=== PATIENT | female | born 1940 | race Caucasian/White ===

== ENCOUNTER 2021-10-01 10:23 | Outpatient (CLI) | payer OTHER, MEDICARE, BC, SELFPAY ==
--- OUTSIDE RECORDS SUMMARY | 2021-10-08 21:30 | XMS_ITS | Encounter Summary ---
:1940 Author Organization [facility] Address [address] [place] [address] Care Team Providers Name Role Phone Unavailable Primary Care Provider Unavailable Encounter Details Date Type Department Care Team Description 03/03/2021 Admin Visit Department of Family Medicine, [address] [address] [facility] [phone] Social History Tobacco Use Types Packs/Day Years Used Date Smoking Tobacco: Never Assessed Sex Assigned at Date Recorded Not on file documented as of this encounter Plan of Treatment Not on filedocumented as of this encounter Visit Diagnoses Not on filedocumented in this encounter Additional Health Concerns Infection Onset Date Last Indicated Resolved Time COVID19 Pending 03/01/2021 03/03/2021 03/04/2021 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
--- OUTSIDE RECORDS SUMMARY | 2021-10-08 21:30 | XMS_ITS | Encounter Summary ---
:1940 Author Organization [facility] Address [address] [place] [address] Care Team Providers Name Role Phone Unavailable Primary Care Provider Unavailable Encounter Details Date Type Department Care Team Description 06/22/2021 Admin Visit Department of Family Medicine, [address] [address] [facility] [phone] Social History Tobacco Use Types Packs/Day Years Used Date Smoking Tobacco: Never Assessed Sex Assigned at Date Recorded Not on file documented as of this encounter Plan of Treatment Not on filedocumented as of this encounter Visit Diagnoses Not on filedocumented in this encounter Additional Health Concerns Infection Onset Date Last Indicated Resolved Time COVID19 Pending 06/22/2021 06/22/2021 06/23/2021 8:47 AM CDT documented as of this encounter
--- OUTSIDE RECORDS SUMMARY | 2021-10-08 21:30 | XMS_ITS | Encounter Summary ---
:1940 Author Organization [facility] Address [address] [place] [address] Care Team Providers Name Role Phone Unavailable Primary Care Provider Unavailable Encounter Details Date Type Department Care Team Description 01/21/2006 Historical Ophthalmology RST OPH Kamron Miranda M.D. [address] [place], [place] [phone] (Wo rk) Social History Tobacco Use Types Packs/Day Years Used Date Smoking Tobacco: Never Assessed Sex Assigned at Date Recorded Not on file documented as of this encounter Progress Notes Kamron Bautista M.D. - 01/21/2006 12:00 AM CST Eye General CHIEF COMPLAINT retina problems in both eyes HISTORY OF PRESENT ILLNESS This 65 year old female was referred here by Dr. Butler ([place], [place]) for an evaluation of bilateral macular changes. Letter is along with history. Patient states that she was going to have cataract surgery performed, but was told that she needed to take care of her retinas before doing so. Patient states that vision has changed quite dramatically in the last 9 months in both eyes. Started to notice changes in her vision since October of 2003. Isn't having problems with her near vision, more so in the distance. Sees floaters in both eyes on occasion, x 9 months. Bright lights at night bother her, she sees stars. Denies any flashes of light. Denies pressure and pain. Denies double vision. IMPRESSION / REPORT / PLAN #1 Basal laminar (cuticular) drusen, both eyes Malattia Leventinese type? #2 Moderate cataracts, both eyes I think they are visually significant in both eyes, mervat in valerie left eye as there are many vacuoles, and valerie red reflex is significantly blocked in both eyes #3 Atypical choroidal nevi, left eye X2, should be monitored periodically, preferably every 6 months #[address] Butler is planning on working this up, this is already scheduled Get fundus photos, OCT to rule out srf, mervat in left eye OCT does not show any sub or intraretinal fluid. I think she would benefit from cataract surgery, and management of the possible present keratoconus.Cuticular drusen have a lower risk of complications than typical AMD. 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
--- OUTSIDE RECORDS SUMMARY | 2021-10-08 21:30 | XMS_ITS | Encounter Summary ---
:1940 Author Organization [facility] Address [address] [place] [address] Care Team Providers Name Role Phone Unavailable Primary Care Provider Unavailable Reason for Visit Outpatient (Routine) - Closed Specialty Diagnoses / Procedures Referred By Contact Refer red To Contact Nephrology and Diagnoses Chronic Kidney Disease Stage 5 Glomerular Filtration Rate Less Than 15 (HCC) Dylan Nassar M.D. [facility] Hypertension / Dialysis [address] [place] [address] Referral ID Status Reason Start Date Expiration Date Visits Requ ested Visits Authorized [id number] Closed 02/03/2020 02/02/2021 1 1 Encounter Details Date Type Department Care Team Description 02/27/2020 Comprehensive Visit Division of Vascular Marco Nassar M.D. [address] [place] [phone] Chronic Kidney and Endovascular Kendall Bal M.D. [address] [place] [phone] Disease Stage 5 Surgery in Glomerular [place], [place] Filtration Rate [address] [facility] Less Than 15 (HCC) [place] [phone] Social History Tobacco Use Types Packs/Day Years Used Date Smoking Tobacco: Never Assessed Sex Assigned at Date Recorded Not on file documented as of this encounter Consult Notes Kendall Bal M.D. - 02/27/2020 1:20 PM CST Hui Rodriguez : 1940 Visit Date: 02/27/20 Referring provider: Dylan Nassar M.D. SUBJECTIVE CHIEF COMPLAINT/ REASON FOR VISIT: End Stage Renal Disease HISTORY OF PRESENT ILLNESS: Hui Rodriguez is a 79 y.o. female that presents for consultation. She has been referred for consideration of creation of permanent dialysis access. She is currently not on dialysis. In fact, herGFR has been quite stable, 17 and 15 over the last 12 months. She does not have uremic symptoms. Sheis right handed. Current dialysis: no Prior history of dialysis fistula:No VAS Surgery VQI Screening No current outpatient medications on file. REVIEW OF SYSTEMS: Pertinent items are noted in HPI; all other systems were reviewed per Medical History. OBJECTIVE PHYSICAL EXAM: General: Alert and oriented, no acute distress. Examination of the neck, chest, and upper extremities reveal no anatomical abnormalities. Extremities: Oscar's test is negative bilaterally. Radial and ulnar pulses are palpable bilaterally. No evidence of significant collateral circulation in either arm. Pulses Exam DIAGNOSTIC STUDIES Ultrasound Results: Left brachial arteries patent, greater than 3 mm, bifurcates distally. Cephalic vein is 2 mm at the antecubital fossa, 2.2 mm at the lower humerus. Basilic vein is 2.4/2.5 mm at thelevel of the antecubital fossa. On the right, her bifurcation is very high, at the level of the axilla. Cephalic and basilic vein were of good caliber for fistula. ASSESSMENT / PLAN Would recommend a left brachial basilic fistula in 2 stages. However, I am not entirely sure that she is ready for a fistula yet, as her renal function has been very stable she does not have any uremicsymptoms. I discussed her case with Dr. Nassar and he will talk to her local electric melt operator, and we willdecide about timing of the procedure. While her left basilic vein is borderline for fistula, I do believe it is worth trying particularly with the 2 stage approach. Discussed impression report and plan with the patient, indication for the procedure, prognosis with and without procedure. Discussed the risks and benefits of an arteriovenous fistula, including steal,nerve injury, hemorrhagic complications, infection, wound healing problems, anesthesia related problems, nerve damage, need for multiple fistulogram is a interventions in the future, possible no maturation of the vein, and the patient understands and agrees with the plan, all questions answered. DIAGNOSIS: #1 Chronic Kidney Disease Stage 5 Glomerular Filtration Rate Less Than 15 (HCC) Kendall Bal M.D. S SALESPERSON documented in this encounter Plan of Treatment Not on filedocumented as of this encounter Visit Diagnoses Diagnosis Chronic Kidney Disease Stage 5 Glomerula r Filtration Rate Less Than 15 (HCC) documented in this encounter
--- OUTSIDE RECORDS SUMMARY | 2021-10-08 21:30 | XMS_ITS | Encounter Summary ---
:1940 Author Organization [facility] Address [address] [place] [address] Care Team Providers Name Role Phone Unavailable Primary Care Provider Unavailable Encounter Details Date Type Department Care Team Description 01/02/2020 [facility] Levi Navas Chronic Kidney [facility] Rose Mary Stern Disease Stage [address] [place] [address] [place], [place] Dependent (HCC) [phone] [id number] (Primary Dx) Social History Tobacco Use Types Packs/Day Years Used Date Smoking Tobacco: Never Assessed Sex Assigned at Date Recorded Not on file documented as of this encounter Plan of Treatment Not on filedocumented as of this encounter Visit Diagnoses Diagnosis Chronic Kidney Disease Stage 4 GFR 15-29 Dialysis Dependent (HCC) - Primary documented in this encounter
--- OUTSIDE RECORDS SUMMARY | 2021-10-08 21:30 | XMS_ITS | Encounter Summary ---
:1940 Author Organization [facility] Address [address] [place] [address] Care Team Providers Name Role Phone Unavailable Primary Care Provider Unavailable Reason for Visit Reason Onset Date Comments Testing For Upper Respiratory Virus Symptoms 01/19/2021 Encounter Details Date Type Department Care Team Description 01/19/2021 External Outreach Department of [facility] Manpreet Cardona Contact With And Medicine, [facility] Bill Marsh (Suspected) Exposure Building, in [address] To COVID-19 (Primary [place], [place] Dx) [address] [facility] [address] [place], [place] [phone] [address] (Work) [phone] Social History Tobacco Use Types Packs/Day Years Used Date Smoking Tobacco: Never Assessed Sex Assigned at Date Recorded Not on file documented as of this encounter Progress Notes Marion Jaramillo R.N. - 01/19/2021 12:44 PM CST Encounter created for symptomatic infectious disease screening with possible COVID, Influenza, RSV, and/or Group A Strep testing. 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 documented in this encounter Results SARS Coronavirus-2 RNA, V Symptomatic (01/19/2021 2:49 PM BIOLOGY MANAGER) [facility] Method Time Signature SARS-CoV-2 Swab, 01/20/2021 MKTO Specimen Nasopharynx 9:26 AM BIOLOGY MANAGER Source SARS CoV-2 Undetected Undetected 01/20/2021 MKTO RNA, TMA 9:26 AM BIOLOGY MANAGER Comment: SARS-CoV-2 RNA absent. This result does not rule out COVID-19 in the patient, as the sensitivity of the test depends o n the timing of the specimen collection and the quality of the specim en. Result should be correlated with patient's history and clinical presentat ion. ----ADDITIONAL INFORMATION---- This molecular amplification test was pe rformed using the Aptima SARS-CoV-2 assay ([employer] on the Project Playlists tem under emergency use authorization (EUA) by the U.S. Food and Drug Administ ration. Fact sheets for this EUA assay can be fo und at the following links: For Healthcare Providers: https://www.Zoobe a.gov/media/121704/download For Patients: https://www.fda.gov/media/ 458470/download Specimen Anatomical Collection Method Collection Time Receive d Time (Source) Location / / Volume Laterality Varies 01/19/2021 2:49 PM 1:58 (Nasopharynx) BIOLOGY MANAGER AM BIOLOGY MANAGER Manpreet Cardona D.O. LAB MICROBIOLOGY - GENERAL O RDERABLES Performing Organization Address City/State/ZIP Code Phon e Number [facility]- [address] [place] [phone] [place] [address] [address] documented in this encounter Visit Diagnoses Diagnosis Contact With And (Suspected) Exposure To COVID-19 - Primary documented in this encounter Additional Health Concerns Infection Onset Date Last Indicated Resolved Time COVID19 Pending 01/19/2021 01/19/2021 01/20/2021 9:27 AM BIOLOGY MANAGER documented as of this encounter
--- OUTSIDE RECORDS SUMMARY | 2021-10-08 21:30 | XMS_ITS | Encounter Summary ---
:1940 Author Organization [facility] Address [address] [place] [address] Care Team Providers Name Role Phone Unavailable Primary Care Provider Unavailable Encounter Details Date Type Department Care Team Description 02/14/2020 Documentation Division of Nephrology and Matteo Allen, Hypertension in [facility] [address] [facility] [address] [place] [phone] Social History Tobacco Use Types Packs/Day Years Used Date Smoking Tobacco: Never Assessed Sex Assigned at Date Recorded Not on file documented as of this encounter Nursing Notes Maisha Allen RJanuary - 02/14/2020 2:[address] Nassar CHIEF COMPLAINT/PURPOSE OF VISIT REASON FOR REFERRAL: ??Needs education and evaluation for permanent vascular access for dialysis HISTORY OF PRESENT ILLNESS ? PERTINENT PROCEDURAL HISTORY: ? 79 y.o., female, from [facility], referred by Dr. Nassar for education and evaluation for permanent vascular access for dialysis. ??Her kidney disease is related to diabetic nephropathy and hypertension. ??Her eGFR is 14 mL/min. (She is not yet on dialysis). ?? Other history: ??She has a history of kidney stones, diabetes type 2, hypertension, hypothyroidism. ??She is not interested in home dialysis including PD. PACEMAKER: ??None noted in chart. DIABETES: ?Diabetic Type 2: ??Per chart medications include Glipizide, Aspart, and Tresiba ANTICOAGULATION: ? Takes 81mg Aspirin only. LABORATORY RESULTS: ?Please see EPIC for current Labs. ELECTROCARDIOGRAM: ?None in chart. CHEST X-RAY: ? None in chart VEIN MAPPING: ?? Scheduled prior to surgeon consult PHONE ASSESSMENT Patient is right handed. ??She has no hand complaints besides intermittent numbness bilaterally. ??She does not recall ever having a PICC line. ??She is a diabetic and checks blood sugars on both hands. I instructed her once the fistula side is known to not check blood sugars on that side anymore. IMPRESSION/REPORT/PLAN ?I reviewed the following booklets with the patient and her spouse over the phone today (90minutes): ??Hemodialysis Catheters ([id number]), Hemodialysis Fistula and Graft ([id number]) and the Hemodialysis Vascular Access sheet from [employer] ([id number]). ??All questions were answered. Surgeon: Patient will be seen by Dr. Bal Plan: ??Consult on Thursday, 02/26 Surgery: TBD Insulin Directions: Will need to ensure that she takes all 3. Follow Diabetes Medication Guidelines per each one. Anticoagulation medications directions: ??ASA only ARI: ??Will need to be obtained prior to surgery. ??Dr. Nassar to place orders for MANJINDER vs complete inclinic. 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
--- OUTSIDE RECORDS SUMMARY | 2021-10-08 21:30 | XMS_ITS | Encounter Summary ---
:1940 Author Organization [facility] Address [address] [place] [address] Care Team Providers Name Role Phone Unavailable Primary Care Provider Unavailable Reason for Visit Outpatient (Routine) - Closed Specialty Diagnoses / Procedures Referred By Contact Refer red To Contact Nephrology and Dylan Nassar M.D. [facility] Hypertension [address] [place] [address] Referral ID Status Reason Start Date Expiration Date Visits Requ ested Visits Authorized [id number] Closed 02/03/2020 02/02/2021 1 1 Encounter Details Date Type Department Care Team Description 02/14/2020 Virtual Visit Division of Nephrology Delvis Nassar M.D. [address] [place] [phone] Chronic Kidney and Hypertension in Maisha Allen R.N. [address] [place] [phone] Disease Stage 5 [place], [place] Glomerular [address] [facility] Filtration Rate Less [place], [place] Than 15 ([facility]) [phone] Social History Tobacco Use Types Packs/Day Years Used Date Smoking Tobacco: Never Assessed Sex Assigned at Date Recorded Not on file documented as of this encounter Progress Notes Maisha Allen R.N. 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
--- OUTSIDE RECORDS SUMMARY | 2021-10-08 21:30 | XMS_ITS | Encounter Summary ---
:1940 Author Organization [facility] Address [address] [place] [address] Care Team Providers Name Role Phone Unavailable Primary Care Provider Unavailable Encounter Details Date Type Department Care Team Description 02/20/2020 Orders Only Division of Nephrology Dylan Nassar Fail ure Renal End and Hypertension in M.D. Stage (HCC) (Primary [place], [place] [address] [facility] Dx) [address] [place] [phone] Social History Tobacco Use Types Packs/Day Years Used Date Smoking Tobacco: Never Assessed Sex Assigned at Date Recorded Not on file documented as of this encounter Plan of Treatment Not on filedocumented as of this encounter Visit Diagnoses Diagnosis Failure Renal End Stage (HCC) - Primary documented in this encounter
--- OUTSIDE RECORDS SUMMARY | 2021-10-08 21:30 | XMS_ITS | Encounter Summary ---
:1940 Author Organization [facility] Address [address] [place] [address] Care Team Providers Name Role Phone Unavailable Primary Care Provider Unavailable Reason for Referral Outpatient (Routine) - Closed Specialty Diagnoses / Procedures Referred By Contact Refer red To Contact Diagnoses Chronic Kidney Disease Stage 5 Glomerular Filtration Rate Less Than 15 ([facility]) Dylan Nassar M.D. [facility] Procedures US Upper Extremity Bilateral Dialysis Mapping 200 [place], [place] [address] Referral ID Status Reason Start Date Expiration Date Visits Requ ested Visits Authorized [id number] Closed 02/03/2020 02/02/2021 1 1 ING MILL OPERATOR Reason for Visit Outpatient (Routine) - Closed Specialty Diagnoses / Procedures Referred By Contact Refer red To Contact Diagnoses Chronic Kidney Disease Stage 5 Glomerular Filtration Rate Less Than 15 ([facility]) Dylan Nassar M.D. [facility] Procedures Upper Extremity Bilateral Dialysis Mapping 200 [place], [place] [phone] Referral ID Status Reason Start Date Expiration Date Visits Requ ested Visits Authorized [id number] Closed 02/03/2020 02/02/2021 1 1 Encounter Details Date Type Department Care Team Description 02/15/2020 Hospital Encounter Department of Dylan Nassar, Chronic Kidney RadiologyTricia M.D. Disease Stage 5 Hospital, in [address] [facility] Glomerular Filtration [place], [place] Rate Less Than 15 [address] [facility] [address] ([facility]) [place], [place] [phone] (Work) [phone] Social History Tobacco Use Types Packs/Day Years Used Date Smoking Tobacco: Never Assessed Sex Assigned at Date Recorded Not on file documented as of this encounter Medications at Time of Discharge Medication Sig Dispensed Refills Start Date End Date aspirin [address] tablet Daily 0 10/01/2011 documented as of this encounter Plan of Treatment Not on filedocumented as of this encounter Procedures Procedure Name Priority Date/Time Associated Comments Diagnosis US UPPER RAD - Routine 02/15/2020 4:30 Chronic Kidney Results f or this EXTREMITY (most inpatients PM FULLING MILL OPERATOR Disease Stage 5 procedur e are in BILATERAL and all Glomerular the results DIALYSIS MAPPING outpatients) Filtration Rate section. Less Than 15 (HCC) documented in this encounter Results US Upper Extremity Bilateral Dialysis Mapping (02/15/2020 4:30 PM FULLING MILL OPERATOR) Anatomical Region Laterality Modality Upper Extremity, Ultrasound RST LOS, Ultrasound ARZ LOS, Abiodun ateral Ultrasound Ultrasound FLA LOS Specimen (Source) Anatomical Collection Method Collection Time Re ceived Time Location / / Volume Laterality 02/15/2020 5:04 PM FULLING MILL OPERATOR Impressions 02/15/2020 5:12 PM FULLING MILL OPERATOR 1. Right brachial artery bifurcates high in the near axillary region. 2. Basilic veins become small distal to the antecubital fossa on each side. Narrative 02/15/2020 5:12 PM FULLING MILL OPERATOR EXAM: US UPPER EXTREMITY BILATERAL DIALYSIS MAPPING Exam performed with color and spectral D oppler analysis. COMPARISON: None FINDINGS: RIGHT Deep Vein Assessment: Normal. Central Arterial Assessment: Normal. ARTERIAL DIAMETERS Brachial artery: ?? Brachial artery bifu rcates high in the axilla. Radial artery: ?? 1.6 mm Ulnar artery: ?? 1.6 mm Distance from right elbow crease to [facility] hial artery bifurcation: cm . CEPHALIC VEIN Upper humerus: ??4.2 mm Mid humerus: ??4.1 mm Lower humerus: ??4.6 mm Antecubital fossa: ??4.9 mm Upper forearm: ??2.5 mm Mid forearm: ??3.0 mm Wrist: ??2.1 mm BASILIC VEIN Upper humerus: ?? 4.4 mm Mid humerus: 3.4 mm Lower humerus: 3.4 mm Antecubital fossa: ??2.8 mm Upper forearm: ?? 1.2 mm Mid forearm: ??Not visualized Wrist: LEFT Deep Vein Assessment: Normal. Central Arterial Assessment: Normal. ARTERIAL DIAMETERS Brachial artery: ?? 3.4 mm Radial artery: ? 1.8 mm Ulnar artery: ?? 1.6 mm Distance from left elbow crease to brach ial artery bifurcation: cm . Brachial artery bifurcates in the region distal t o the antecubital fossa. CEPHALIC VEIN Upper humerus: ?? 3.0 mm Mid humerus: ??2.5 mm Lower humerus: 2.2 mm Antecubital fossa: ??2.0 mm Upper forearm: ?? 2.2 mm Mid forearm: ??2.2 mm Wrist: ?? 2.1 mm BASILIC VEIN Upper humerus: ??3.0 mm Mid humerus: ??2.5 mm Lower humerus: ?? 2.5 mm Antecubital fossa: ?? 2.4 mm Upper forearm: 1.0 mm Mid forearm: ?? * Wrist: Sanchez: ( * ) = too small (<2mm) or not visualiz ed ( X ) = not examined Procedure Note Abhay Brizuela M.D. - 02/15/2020Forma tting of this note might be different from the original. EXAM: US UPPER EXTREMITY BILATERAL DIALY SIS MAPPING Exam performed with color and spectral D oppler analysis. COMPARISON: None FINDINGS: RIGHT Deep Vein Assessment: Normal. Central Arterial Assessment: Normal. ARTERIAL DIAMETERS Brachial artery: Brachial artery bifurca shaylee high in the axilla. Radial artery: 1.6 mm Ulnar artery: 1.6 mm Distance from right elbow crease to brac hial artery bifurcation: cm . CEPHALIC VEIN Upper humerus: 4.2 mm Mid humerus: 4.1 mm Lower humerus: 4.6 mm Antecubital fossa: 4.9 mm Upper forearm: 2.5 mm Mid forearm: 3.0 mm Wrist: 2.1 mm BASILIC VEIN Upper humerus: 4.4 mm Mid humerus: 3.4 mm Lower humerus: 3.4 mm Antecubital fossa: 2.8 mm Upper forearm: 1.2 mm Mid forearm: Not visualized Wrist: LEFT Deep Vein Assessment: Normal. Central Arterial Assessment: Normal. ARTERIAL DIAMETERS Brachial artery: 3.4 mm Radial artery: 1.8 mm Ulnar artery: 1.6 mm Distance from left elbow crease to brach ial artery bifurcation: cm . Brachial artery bifurcates in the region distal t o the antecubital fossa. CEPHALIC VEIN Upper humerus: 3.0 mm Mid humerus: 2.5 mm Lower humerus: 2.2 mm Antecubital fossa: 2.0 mm Upper forearm: 2.2 mm Mid forearm: 2.2 mm Wrist: 2.1 mm BASILIC VEIN Upper humerus: 3.0 mm Mid humerus: 2.5 mm Lower humerus: 2.5 mm Antecubital fossa: 2.4 mm Upper forearm: 1.0 mm Mid forearm: * Wrist: Sanchez: ( * ) = too small (<2mm) or not visualiz ed ( X ) = not examined IMPRESSION: 1. Right brachial artery bifurcates high in the near axillary region. 2. Basilic veins become small distal to the antecubital fossa on each side. Dylan LOPEZ US PROCEDURES documented in this encounter Visit Diagnoses Diagnosis Chronic Kidney Disease Stage 5 Glomerula r Filtration Rate Less Than 15 (HCC) documented in this encounter
--- OUTSIDE RECORDS SUMMARY | 2021-10-08 21:30 | XMS_ITS | Encounter Summary ---
:1940 Author Organization [facility] Address [address] [place] [address] Care Team Providers Name Role Phone Unavailable Primary Care Provider Unavailable Encounter Details Date Type Department Care Team Description 03/28/2020 Orders Only Division of Nephrology and Dylan Nassar M.D. Hypertension in [place], [facility] [address] [place], [place] [address] [place] [phone] [place] [address] [phone] Social History Tobacco Use Types Packs/Day Years Used Date Smoking Tobacco: Never Assessed Sex Assigned at Date Recorded Not on file documented as of this encounter Plan of Treatment Not on filedocumented as of this encounter Visit Diagnoses Not on filedocumented in this encounter
--- OUTSIDE RECORDS SUMMARY | 2021-10-08 21:30 | XMS_ITS | Encounter Summary ---
:1940 Author Organization [facility] Address [address] [place] [address] Care Team Providers Name Role Phone Unavailable Primary Care Provider Unavailable Reason for Visit Reason Onset Date Comments Outpatient COVID-19 Testing 03/01/2021 Encounter Details Date Type Department Care Team Description 03/01/2021 External Outreach Department of [facility] Manpreet Cardona Contact With And Medicine, [facility] Bill Marsh (Suspected) Exposure Building, in [address] To COVID-19 (Primary [place], [place] Dx) [address] [facility] [address] [place], [place] [phone] (Work) [phone] Social History Tobacco Use Types Packs/Day Years Used Date Smoking Tobacco: Never Assessed Sex Assigned at Date Recorded Not on file documented as of this encounter Progress Notes Marion Jaramillo R.N. - 03/01/2021 10:32 AM CST Encounter created for COVID-19 screening. D WING PILOT documented in this encounter Plan of Treatment Not on filedocumented as of this encounter Procedures Procedure Name Priority Date/Time Associated Diagnosis Comme nts SARS CORONAVIRUS-2 Routine 03/03/2021 2:51 PM Contact With And Results for this RNA, V FIXED WING PILOT (Suspected) Exposure procedu re are in To COVID-19 the results section. documented in this encounter Results SARS Coronavirus-2 RNA, V Asymptomatic (03/03/2021 2:51 PM FIXED WING PILOT) [facility] Method Time Signature SARS-CoV-2 Swab, 03/04/2021 MKTO Specimen Nasopharynx 3:25 PM FIXED WING PILOT Source SARS CoV-2 Undetected Undetected 03/04/2021 MKTO RNA, TMA 3:25 PM FIXED WING PILOT Comment: SARS-CoV-2 RNA absent. This result does not rule out COVID-19 in the patient, as the sensitivity of the test depends o n the timing of the specimen collection and the quality of the specim en. Result should be correlated with patient's history and clinical presentat ion. ----ADDITIONAL INFORMATION---- This molecular amplification test was pe rformed using the Aptima SARS-CoV-2 assay ([employer] on the [employer] tem under emergency use authorization (EUA) by the U.S. Food and Drug Administ ration. Fact sheets for this EUA assay can be fo und at the following links: For Healthcare Providers: https://www.[employer] a.gov/media/476418/download For Patients: https://www.fda.gov/media/ 461442/download Specimen Anatomical Collection Method Collection Time Receive d Time (Source) Location / / Volume Laterality Varies 03/03/2021 2:51 PM 4:55 (Nasopharynx) FIXED WING PILOT AM FIXED WING PILOT Manpreet Cardona D.O. LAB MICROBIOLOGY - GENERAL O RDERABLES Performing Organization Address City/State/ZIP Code Phon e Number [facility]- [address] [place] [address] [place] [address] [address] documented in this encounter Visit Diagnoses Diagnosis Contact With And (Suspected) Exposure To COVID-19 - Primary documented in this encounter Additional Health Concerns Infection Onset Date Last Indicated Resolved Time COVID19 Pending 03/01/2021 03/03/2021 03/04/2021 4:21 PM FIXED WING PILOT documented as of this encounter
--- OUTSIDE RECORDS SUMMARY | 2021-10-08 21:30 | XMS_ITS | Encounter Summary ---
:1940 Author Organization [facility] Address [address] [place] [address] Care Team Providers Name Role Phone Unavailable Primary Care Provider Unavailable Reason for Visit Appointment Request (Routine) - Closed Specialty Diagnoses / Procedures Referred By Contact Refer red To Contact Nephrology and Hypertension Referral ID Status Reason Start Date Expiration Date Visits Requ ested Visits Authorized [id number] Closed 03/28/2020 03/28/2021 1 1 Encounter Details Date Type Department Care Team Description 02/27/2020 Nurse Only Division of Nephrology and Dylan Nassar M.D. Hypertension in [place], [facility] [address] [place], [place] [address] [place] [phone] [place] [address] [phone] Social History Tobacco Use Types Packs/Day Years Used Date Smoking Tobacco: Never Assessed Sex Assigned at Date Recorded Not on file documented as of this encounter Consult Notes Dylan Nassar M.D. - 02/27/2020 2:00 PM CST Patient referred to [facility] by Dr. Abhay Smith for consideration of placement of a dialysis fistula. I visited with the patient and her initially with Dr. Bal from Vascular Surgery and againfollowing the consultation with Dr. Bal. History of present illness This 79-year-old lady is followed by Dr. Abhay Smith at the [facility] in [place] because of chronic kidney disease that is ascribed to diabetes mellitus and hypertension, both of which were diagnosed some 14 years ago at age [age] years old. The patient has slowly progressive chronic kidney disease. She decided that her preferred treatment for ESRD is in-center hemodialysis, having decided against peritoneal dialysis and home hemodialysis. The kidney function is relatively stable and slow in itsprogression. For example, according to Dr. Smith???s records, the eGFR was 17 in January 2019, 15 in April 2019, and 15 in January 2020, when she was last seen by Dr. Smith. The patient is still ac tive, her activity being reduced because of arthritis in her knees, not because of chest pain or exertional dyspnea. She does her own housework and shopping. She avoids steps because of her knees. She is without chest pain at rest or on exertion or irregularity of the heart beat or arrhythmias. No known history of heart disease. She thinks she may be a little more short of breath when she goes from her basement to the upper levels in her house. She denies orthopnea or paroxysmal nocturnal dystonia. She sleeps on 1 pillow. She has intermittent lower extremity edema which has been improved recently. The patient denies daytime somnolence, loss of appetite, nausea, vomiting, abnormal taste, muscle cramps, or pruritus. Her appetite is excellent, in fact she says it is too good. She has no change/diminution in urinary output and has nocturia 2 or 3 times or so, and no genitourinary symptoms. She feelsthat overall her general energy level has been stable over the last few months. The patient wishes to have her dialysis vascular access placed at [facility]. She has brother who has been on dialysis for many years Past medical/surgical history 1. Diabetes mellitus diagnosed at age 65 2. Systemic hypertension diagnosed at age 65 3. CKD Stage 4, ascribed to diabetes and hypertension 4. Left shoulder replacement after traumatic fall onto the shoulder 5 years ago 5. Cholecystectomy 2012 6. Hypothyroidism 7. 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 Tubal ligation 1978 No past medical history of heart disease, cerebrovascular disease, seizures, loss of consciousness, DVT, pulmonary emboli. Review of Symptoms Systemic: No fevers, chills, night sweats CV: As above RS: No cough, sputum production, upper respiratory tract symptoms GI: No significant symptoms NS: No LOC, no weakness, no difficulty with gait or balance Social History for many years. has leukemia. 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 She smoked cigarettes from her mid-twenties having stopped several months ago. She does not drinkalcohol. Physical examination No acute distress No JVD, neck supple Lungs clear Heart, S1-S2 soft systolic murmur. No rub LE, 1+ edema lungs, no sacral edema or periorbital edema. No asterixis Impression/Report/Plan 1. CKD Stage IV, ascribed to diabetes mellitus and hypertension 2. Insulin dependent diabetes mellitus 3. Systemic hypertension The patient is right handed. The vessels are such that they would allow the placement of left brachio-basilic fistula in two stages. The brachial artery on the right side shows a high bifurcation. The patient is relatively free from uremic symptoms and it is notable that the eGFR has been stable at 15 over the past 10 months or so, with eGFR of 17 in Dec 2018. The patient is due to have repeat renal function tests on 04/03/20 and follow up with Dr. Smith on 04/10/20. Discussed with the patient and Dr. Bal. We will evaluate these labs and get Dr. Smith???s input as regard timing of fistula placement. I tried to reach Dr. Smith this afternoon but he is on vacation, but will discuss with him on his return. The patient is in full agree with this plan. 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
--- OUTSIDE RECORDS SUMMARY | 2021-10-08 21:30 | XMS_ITS | Encounter Summary ---
:1940 Author Organization [facility] Address [address] [place] [address] Care Team Providers Name Role Phone Unavailable Primary Care Provider Unavailable Reason for Referral Outpatient (Routine) - Closed Specialty Diagnoses / Procedures Referred By Contact Refer red To Contact Nephrology and Diagnoses Chronic Kidney Disease Stage 5 Glomerular Filtration Rate Less Than 15 (HCC) Dylan Nassar M.D. [facility] Hypertension / Dialysis [address] [place] [address] Referral ID Status Reason Start Date Expiration Date Visits Requ ested Visits Authorized [id number] Closed 02/03/2020 02/02/2021 1 1 Scheduling Instructions She's hoping to have surgery at [facility], so a transplant surgeon if easy to schedule that way utpatient (Routine) - Closed Specialty Diagnoses / Procedures Referred By Contact Refer red To Contact Diagnoses Chronic Kidney Disease Stage 5 Glomerular Filtration Rate Less Than 15 (HCC) Dylan Nassar M.D. [facility] Procedures US Upper Extremity Bilateral Dialysis Mapping [address] [place], [place] [address] Referral ID Status Reason Start Date Expiration Date Visits Requ ested Visits Authorized [id number] Closed 02/03/2020 02/02/2021 1 1 utpatient (Routine) - Closed Specialty Diagnoses / Procedures Referred By Contact Refer red To Contact Nephrology and Dylan Nassar M.D. [facility] Hypertension [address] [place] [address] Referral ID Status Reason Start Date Expiration Date Visits Requ ested Visits Authorized [id number] Closed 02/03/2020 02/02/2021 1 1 EM ANALYST Encounter Details Date Type Department Care Team Description 02/03/2020 Orders Only Division of Nephrology Dylan Nassar Chro nic Kidney Disease and Hypertension in M.D. Stage 5 Glomerular [place], [place] [address] Filtration Rate Less [address] [place], [place] Than 15 (HCC) ([place] [address] Dx) [phone] Social History Tobacco Use Types Packs/Day Years Used Date Smoking Tobacco: Never Assessed Sex Assigned at Date Recorded Not on file documented as of this encounter Plan of Treatment Scheduled Referrals Name Type Priority Associated Order Schedule Diagnoses Nephrology nurse Outpatient Referral Routine Expe cted: visit (clinic) 02/03/2020 (Approximate), Expires: 02/02/2023 Dialysis - Outpatient Referral Routine Chronic Kidney Expect ed: Hemodialysis access Disease Stage 5 02/02 consult (clinic) Glomerular (Approximat e), Filtration Rate Expires: Less Than 15 (HCC) 3 documented as of this encounter Results US Upper Extremity Bilateral Dialysis Mapping (02/15/2020 4:30 PM SYSTEM ANALYST) Anatomical Region Laterality Modality Upper Extremity, Ultrasound RST LOS, Ultrasound ARZ LOS, Abiodun ateral Ultrasound Ultrasound FLA LOS Specimen (Source) Anatomical Collection Method Collection Time Re ceived Time Location / / Volume Laterality 02/15/2020 5:04 PM SYSTEM ANALYST Impressions 02/15/2020 5:12 PM SYSTEM ANALYST 1. Right brachial artery bifurcates high in the near axillary region. 2. Basilic veins become small distal to the antecubital fossa on each side. Narrative 02/15/2020 5:12 PM SYSTEM ANALYST EXAM: US UPPER EXTREMITY BILATERAL DIALYSIS MAPPING [...] r Filtration Rate Less Than 15 (HCC) - Primary Chronic Kidney Disease Stage 5 Glomerula r Filtration Rate Less Than 15 (HCC) documented in this encounter
--- OUTSIDE RECORDS SUMMARY | 2021-10-08 21:30 | XMS_ITS | Encounter Summary ---
:1940 Author Organization [facility] Address [address] [place] [address] Care Team Providers Name Role Phone Unavailable Primary Care Provider Unavailable Encounter Details Date Type Department Care Team Description 01/19/2021 Admin Visit Department of Family Medicine, [address] [address] [facility] [phone] Social History Tobacco Use Types Packs/Day Years Used Date Smoking Tobacco: Never Assessed Sex Assigned at Date Recorded Not on file documented as of this encounter Plan of Treatment Not on filedocumented as of this encounter Visit Diagnoses Not on filedocumented in this encounter Additional Health Concerns Infection Onset Date Last Indicated Resolved Time COVID19 Pending 01/19/2021 01/19/2021 01/20/2021 9:27 AM RETREADER documented as of this encounter
--- OUTSIDE RECORDS SUMMARY | 2021-10-08 21:30 | XMS_ITS | Encounter Summary ---
:1940 Author Organization [facility] Address [address] [place] [address] Care Team Providers Name Role Phone Unavailable Primary Care Provider Unavailable Reason for Visit Reason Onset Date Comments Outpatient COVID-19 Testing 06/22/2021 Encounter Details Date Type Department Care Team Description 06/22/2021 External Outreach Department of [facility] Manpreet Cardona Contact With And Medicine, Reid Marsh D.O. (Suspected) Exposure Building, in [address] To COVID-19 (Primary [place], [place] Dx) [address] [address] [place], [place] [phone] (Work) [phone] Social History Tobacco Use Types Packs/Day Years Used Date Smoking Tobacco: Never Assessed Sex Assigned at Date Recorded Not on file documented as of this encounter Progress Notes Janice Turcios R.N. - 06/22/2021 10:00 AM CDT Encounter created for COVID-19 screening. documented in this encounter Miscellaneous Notes Result Encounter Note - Jovanna Dickens R.N. - 06/23/2021 9:05 AM CDT Your patient has tested positive for SARS-CoV-2, the virus that causes COVID-19. Every patient that tests positive receives initial guidance sent via an online letter, which is sent by mail or the patient portal depending on patient preferences. ACTION NEEDED: Please update the patient's problem list and medication list to ensure an accurate and timely evaluation for COVID-19 treatments, including various medications and Remote Patient Monitoring (RPM). If eligible for COVID-19 treatments or RPM, your patient will be contacted by a designated team of nurses to coordinate the care. For questions, contact the [place] [facility] ([facility]): Pager: [phone] In basket: P [facility] COVID-19 POSITIVE NOTE: At the time of testing, patients are instructed to obtain the result by calling the [facility] result line or by checking their online services account. documented in this encounter Plan of Treatment Not on filedocumented as of this encounter Procedures Procedure Name Priority Date/Time Associated Diagnosis Comme nts SARS CORONAVIRUS-2 Routine 06/22/2021 1:24 PM Contact With And Results for this RNA, V CDT (Suspected) Exposure procedu re are in To COVID-19 the results section. documented in this encounter Results (ABNORMAL) SARS Coronavirus-2 RNA, V Asymptomatic (06/22/2021 1:24 PM CDT) [facility] Method Time Signature SARS-CoV-2 Swab, 06/23/2021 [facility] Specimen Nasopharynx 8:46 AM CDT Source SARS CoV-2 Detected (A) Undetected 06/23/2021 MKTO RNA, TMA 8:46 AM CDT Comment: SARS-CoV-2 RNA present. ----ADDITIONAL INFORMATION---- This molecular amplification test was pe rformed using the Aptima SARS-CoV-2 assay ([employer] on the [employer] [employer] tem under emergency use authorization (EUA) by the U.S. Food and Drug Administ ration. Fact sheets for this EUA assay can be fo und at the following links: For Healthcare Providers: https://www.fd a.gov/media/970595/download For Patients: https://www.fda.gov/media/ 043495/download Specimen Anatomical Collection Method Collection Time Receive d Time (Source) Location / / Volume Laterality Varies 06/22/2021 1:24 PM 4:21 (Nasopharynx) CDT AM CDT Manpreet Cardona D.O. LAB MICROBIOLOGY - GENERAL O RDERABLES Performing Organization Address City/State/ZIP Code Phon e Number [facility] [address] [place] [address] [place] [address] System in [place] [address] [facility] documented in this encounter Visit Diagnoses Diagnosis Contact With And (Suspected) Exposure To COVID-19 - Primary documented in this encounter Additional Health Concerns Infection Onset Date Last Indicated Resolved Time COVID19 Pending 06/22/2021 06/22/2021 06/23/2021 8:47 AM CDT documented as of this encounter
--- OUTSIDE RECORDS SUMMARY | 2021-10-08 21:30 | XMS_ITS | Encounter Summary ---
:1940 Author Organization [facility] Address [address] [place] [address] Care Team Providers Name Role Phone Unavailable Primary Care Provider Unavailable Reason for Visit Reason Comments Outpatient Infusion Episode Based Medications (Routine) - Closed Specialty Diagnoses / Procedures Referred By Contact Refer red To Contact Diagnoses COVID-19 Infection [facility] Mario Alberto Stern M.D., M[facility] [address] [place] [id number] [place], [place] [id number] 1986 Referral ID Status Reason Start Date Expiration Date Visits Requ ested Visits Authorized [id number] Closed 06/23/2021 06/23/2022 99 99 Encounter Details Date Type Department Care Team Description 06/24/2021 Infusion Department of Infusion [place] COVID-19 Infection Therapy in [facility] Blue Stern M.D., (Jackie Baker) [place] [facility] [address] [place] [phone] Social History Tobacco Use Types Packs/Day Years Used Date Smoking Tobacco: Never Assessed Sex Assigned at Date Recorded Not on file documented as of this encounter Last Filed Vital Signs Vital Sign Reading Time Taken Comments Blood Pressure 157/52 06/24/2021 1:58 PM CDT Pulse 66 06/24/2021 1:58 PM CDT Temperature 36.8 ??C (98.2 ??F) 06/24/2021 1:58 PM CDT Respiratory Rate 18 06/24/2021 1:58 PM CDT Oxygen Saturation 99% 06/24/2021 1:58 PM CDT Inhaled Oxygen Concentration - - Weight - - Height - - Body Mass Index - - documented in this encounter Plan of Treatment Not on filedocumented as of this encounter Visit Diagnoses Diagnosis COVID-19 Infection - Primary documented in this encounter Administered Medications Inactive Administered Medications - up to 3 most recent administrations Medication Order MAR Action Action Date Dose Rate Site bebtelovimab injection 175 mg Given 06/24/2021 2:09 PM CDT 175 mg 175 mg, intravenous, Once, On 06/24/21 at 1400, For 1 dose, Patient/caregiver factsheet: https://www.fda.gov/media/232826/d ownload Preparation: Remove vial from refrigerated storage and allow to equilibrate to room temperature for approximately 20 minutes before preparation. Do not expose to direct heat. Do not shake vial. Inspect the vial. Withdraw 2 mL from the vial into the disposable syringe. Discard any product remaining in the vial. This product is preservative-free and therefore, should be administered immediately. IV push over at least 30 seconds. Flush the IV set with 0.9% normal saline to ensure delivery of the required dose., Attestation: Under FDA EUA: Patient education has been provided and documented, and patient consent obtained, Criteria: Adults and Pediatrics (Pediatrics: >= 12 years and >=40 kg), Indication of use: Outpatient or observation patient: Mild to moderate COVID-19 treatment, AND meeting at least one of the following: Age >= 65 years, Chronic kidney disease, Hypertension documented in this encounter Additional Health Concerns Infection Onset Date Last Indicated Resolved Time COVID19 06/22/2021 06/22/2021 07/12/2021 7:11 AM CDT documented as of this encounter
== END 2021-10-01 10:24 | disposition home or self-care (01) ==
LOC: INJ CL 10:26
PROVIDERS: PCP Family Medicine; Visit Provider Family Medicine
DX: M54.16 Radiculopathy, lumbar region (principal)
CPT/HCPCS: 64483; J0702; Q9966

== ENCOUNTER 2022-05-13 14:03 | Outpatient (CLI) | payer MEDICARE, BC, SELFPAY | END 2022-05-13 14:04 | disposition home or self-care (01) | PROVIDERS: PCP Family Medicine; Visit Provider Family Medicine | DX: M17.11 Unilateral primary osteoarthritis, right knee (principal); M25.561 Pain in right knee | CPT/HCPCS: 64454 ==